=== PATIENT | female | born 1945 | race Caucasian/White ===

== ENCOUNTER 2016-08-20 20:45 | Emergency (ER) | payer MEDICARE, BC, OTHER ==
[2016-08-20] MEDS ORDERED: GLIM1TAB PO (22:06)
[2016-08-20] MEDS ORDERED: METF500T PO (22:06)
--- NOTE | 2016-08-20 22:09 | PD ---
HPI Chief Complaint: Altered Mental Status Time Seen by Provider: 21:29 Travel History International Travel<30 days: No Contact w/Intl Traveler<30days: No History of Present Illness HPI This is a 71-year-old female who presents to the emergency department brought in under a Almodovar act. She evidently was a silver alert. She traveled from [place] here to [place] and her daughter had no idea where she was for a week. She says that she was coming to visit her son who is in the hospital at [facility]. She does acknowledge that last night she slept in her car. She can't really tell me where they've been over the past several days and does appear somewhat confused. PFSH Past Medical History Narrative Medical diabetes dementia Social History Tobacco Use: No Allergies-Medications (Allergen,Severity, Reaction): Coded Allergies: Sulfa (Verified Allergy, Unknown, 08/20/16) PT IS NOT SURE IF SHE IS ALLERGIC DUE TO CONFUSION Reported Meds & Prescriptions Reported Meds & Active Scripts Active Reported Glimepiride 1 Mg Tab 1 Mg PO DAILY Take with breakfast or first main meal Metformin (Metformin HCl) 500 Mg Tab 500 Mg PO DAILY With a meal Review of Systems ROS Limitations: Poor Historian Physical Exam Narrative GENERAL:Well appearing, no acute distress SKIN: Focused skin assessment warm and dry. HEAD: Atraumatic. Normocephalic. EYES: Pupils equal and round. No injection or drainage. ENT: Moist mucous membranes NECK: Trachea midline. CARDIOVASCULAR: Regular rate and rhythm. No murmur appreciated. RESPIRATORY: Clear to auscultation. Breath sounds equal bilaterally. GASTROINTESTINAL: Abdomen soft, non-tender, nondistended. MUSCULOSKELETAL: No obvious deformities. NEUROLOGICAL: Awake and alert. No obvious cranial nerve deficits. Moving all extremities. PSYCHIATRIC: Confused, does appear to have some impaired insight and judgment. Data Data Last Documented VS Vital Signs Date Time Temp Pulse Resp B/P Pulse Ox O2 Delivery O2 Flow Rate FiO2 08/20/16 22:11 98.4 86 18 174/88 98 Orders Complete Blood Count With Diff (08/20/16 21:29) Comprehensive Metabolic Panel (08/20/16 21:29) Urinalysis - C+S If Indicated (08/20/16 21:29) Alcohol (Ethanol) (08/20/16 21:29) Urine Culture (08/20/16 22:50) Sodium Chlor 0.9% 1000 Ml Inj (Ns 1000 M (08/20/16 23:45) Nitrofurantoin Monohyd Macrocr (Macrobid (08/20/16 23:45) Labs Laboratory Tests Test 08/20/16 08/20/16 22:20 22:50 White Blood Count 7.1 TH/MM3 Red Blood Count 4.95 MIL/MM3 Hemoglobin 13.8 GM/DL Hematocrit 41.0 % Mean Corpuscular Volume 82.9 FL Mean Corpuscular Hemoglobin 28.0 PG Mean Corpuscular Hemoglobin 33.8 % Concent Red Cell Distribution Width 13.1 % Platelet Count 210 TH/MM3 Mean Platelet Volume 8.3 FL Neutrophils (%) (Auto) 60.2 % Lymphocytes (%) (Auto) 28.4 % Monocytes (%) (Auto) 9.3 % Eosinophils (%) (Auto) 1.1 % Basophils (%) (Auto) 1.0 % Neutrophils # (Auto) 4.3 TH/MM3 Lymphocytes # (Auto) 2.0 TH/MM3 Monocytes # (Auto) 0.7 TH/MM3 Eosinophils # (Auto) 0.1 TH/MM3 Basophils # (Auto) 0.1 TH/MM3 CBC Comment DIFF FINAL Differential Comment Sodium Level 138 MEQ/L Potassium Level 3.5 MEQ/L Chloride Level 102 MEQ/L Carbon Dioxide Level 27.1 MEQ/L Anion Gap 9 MEQ/L Blood Urea Nitrogen 24 MG/DL Creatinine 1.33 MG/DL Estimat Glomerular Filtration 39 ML/MIN Rate Random Glucose 160 MG/DL Calcium Level 8.9 MG/DL Total Bilirubin 0.7 MG/DL Aspartate Amino Transf 16 U/L (AST/SGOT) Alanine Aminotransferase 20 U/L (ALT/SGPT) Alkaline Phosphatase 73 U/L Total Protein 7.0 GM/DL Albumin 2.8 GM/DL Ethyl Alcohol Level LESS THAN 3 MG/DL Urine Color YELLOW Urine Turbidity HAZY Urine pH 6.5 Urine Specific [place] 1.028 Urine Protein GREATER THAN 600 mg/dL Urine Glucose (UA) 300 mg/dL Urine Ketones NEG mg/dL Urine Occult Blood SMALL Urine Nitrite NEG Urine Bilirubin NEG Urine Urobilinogen LESS THAN 2.0 MG/DL Urine Leukocyte Esterase SMALL Urine RBC 5 /hpf Urine WBC 52 /hpf Urine Squamous Epithelial <1 /hpf Cells Urine Hyaline Casts 1 /lpf Urine Mucus FEW /lpf Microscopic Urinalysis Comment CULTURE INDICATED MDM Medical Decision Making Medical Screen Exam Complete: Yes Emergency Medical Condition: Yes Interpretation(s) afebrile, no tachycardia, hypertensive no leukocytosis renal insufficiency urinalysis: urinary tract infection Differential Diagnosis Dementia, urinary tract infection, dehydration, electrolyte abnormality Narrative Course This is a 71-year-old female who presents to the emergency department having been on a road trip with her from [place] to [place] when her children became concerned and called a silver alert. She does appear somewhat confused. She came down here to see her son who is sick in the hospital but along the way with some point evidently the couple was found wandering the beach and they slept in the car last evening. She appears to have some dementia. Labs were obtained and she has evidence also of a urinary tract infection. She does has renal insufficiency which may be chronic as she has a history of diabetes. She can tolerate oral hydration so I don't think she requires any IV fluids at this time. Patient will be started on antibiotic therapy. I don't think she meets Almodovar act criteria. She has no evidence of mental illness and is not a harm to herself or others. We have contacted the patient's family and they're going to arrive tomorrow to take the patient safely home. I think the patient can be discharged on oral antibiotic therapy. Diagnosis Primary Impression: Urinary tract infection Qualified Code: N30.00 - Acute cystitis without hematuria Patient Instructions: General Instructions Additional Instructions: If you develop fever, persistent vomiting, back pain, or inability to eat return to the emergency department as your urine infection may have progressed to a kidney infection. Complete your antibiotics as prescribed. Stay well hydrated with Gatorade or water. Followup with your primary care physician in 2-3 days if your symptoms have not resolved. Med/Other Pt SpecificInfo: Prescription(s) given Scripts Nitrofurantoin Monohydrate Macrocrystals (Macrobid)100 Mg [id number] Mg PO BID 7 Days Ref 0 Prov:Zonia Da Silva MD 08/21/16 Disposition: 01 DISCHARGE HOME Condition: Stable Zonia Da Silva MD Aug 20, 2016 22:09
[2016-08-20 22:11] VITALS: BP 174/88; PULSE 86; RESP 18; TEMP 98.4; O2SAT 98
[2016-08-20 22:35] LABS: AUTOMATED NEUTROPHIL # 4.3 TH/MM3 (1.8-7.7); BASOPHIL # 0.1 TH/MM3 (0-0.2); EOSINOPHIL # 0.1 TH/MM3 (0-0.4); EOSINOPHIL % 1.1 % (0.0-4.0); HEMO FLAGS DIFF FINAL; LYMPH % 28.4 % (9.0-44.0); MEAN CELL VOLUME 82.9 FL (80.0-100.0); MEAN CORPUSCULAR HGB CONC 33.8 % (32.0-36.0); MONO % 9.3 % (0.0-8.0); NEUT % 60.2 % (16.0-70.0); PLATELET COUNT 210 TH/MM3 (150-450); RED BLOOD COUNT 4.95 MIL/MM3 (4.00-5.30); RED CELL DISTRIBUTION WIDTH 13.1 % (11.6-17.2); WHITE BLOOD COUNT 7.1 TH/MM3 (4.0-11.0)
[2016-08-20 22:57] LABS: ANION GAP 9 MEQ/L (5-15); AST (GOT) 16 U/L (15-37); BICARBONATE 27.1 MEQ/L (21.0-32.0); BLOOD UREA NITROGEN 24 MG/DL (7-18); CHLORIDE 102 MEQ/L (98-107); GLOMERULAR FILTRATION RATE 39 ML/MIN (>89); POTASSIUM 3.5 MEQ/L (3.5-5.1); SODIUM (NA) 138 MEQ/L (136-145)
[2016-08-20 22:58] LABS: ALT (GPT) 20 U/L (10-53)
[2016-08-20 23:00] LABS: ALKALINE PHOSPHATASE 73 U/L (45-117); TOTAL BILIRUBIN ADULT 0.7 MG/DL (0.2-1.0)
[2016-08-20 23:20] LABS: BLOOD, URINE SMALL (NEG); COMMENT (UR) CULTURE INDICATED; CULTURE IF INDICATED CULTURE INDICATED; GLUCOSE,URINE 300 mg/dL (NEG); HYALINE CAST, URINE 1 /lpf (RARE); KETONE, URINE NEG (NEG); MUCUS URINE FEW /lpf (OCC); NITRITE,URINE NEG (NEG); PH, URINE 6.5 (5.0-8.5); SQUAMOUS EPITHELIAL CELL URINE <1 /hpf (0-5); URINE COLOR YELLOW (YELLW/STRAW)
[2016-08-20] MEDS ORDERED: NITROFURANTOIN MONOHYD MACROCR 100 MG CAP PO ONE (23:45)
[2016-08-20] MEDS ORDERED: SODIUM CHLOR 0.9% 1000 ML INJ 1,000 ML IV SCH (23:45)
[2016-08-21] MEDS ORDERED: MACR100C2 PO (00:56)
[2016-08-21 07:49] VITALS: BP 234/95; PULSE 71; RESP 14; O2SAT 97
== END 2016-08-21 17:52 | disposition home or self-care (01) ==
LOC: NEPD 20:45
DX: N30.00 Acute cystitis without hematuria (principal); B96.89 Other specified bacterial agents as the cause of diseases classified elsewhere; F03.90 Unspecified dementia, unspecified severity, without behavioral disturbance, psychotic disturbance, mood disturbance, and anxiety; E11.9 Type 2 diabetes mellitus without complications; Z79.84 Long term (current) use of oral hypoglycemic drugs
CPT/HCPCS: 80053; 80307; 81001; 85025; 87086; 99283